=== PATIENT | female | born 1970 | race Hispanic/Latino ===

== ENCOUNTER 2021-03-30 06:29 | Emergency (ER) | payer SELFPAY ==
[2021-03-30 06:46] LABS: #Basophils 0.1 thou/uL (0.0-0.2); #Lymphocytes 0.4 thou/uL (1.20-3.40); #Monocytes 1.3 thou/uL (0.11-0.59); #Neutrophils 9.7 thou/uL (1.40-6.50); %Basophils 1.3 % (0.0-1.0); %Lymphocytes 3.7 % (21.0-51.0); %Monocytes 11.1 % (0.0-10.0); %Neutrophils 83.9 % (42.0-75.0); Hemoglobin 13.3 g/dL (12.0-16.0); Mean Corpuscular HGB CONC 31.8 g/dL (32.0-36.0); Mean Corpuscular Hemoglobin 30.8 pg (27.0-31.0); Mean Corpuscular Volume 96.6 fL (78.0-98.0); Mean Platelet Volume 6.7 fL (7.4-10.4); Platelet Count 346 thou/uL (130-400); RBC Distribution Width 11.8 % (11.5-14.5); Red Blood Cell (RBC) Count 4.31 mill/uL (4.20-5.40); White Blood Cell (WBC) Count 11.6 thou/uL (4.8-10.8)
[2021-03-30 06:59] LABS: Magnesium 2.2 mg/dL (1.6-2.6)
[2021-03-30] MEDS ORDERED: Sodium Bicarb 50 MEQ/50 ML Abboject 8.4% SYRINGE ONE ×2 (06:59→08:30)
[2021-03-30] MEDS ORDERED: INSULIN REGULAR IN 0.9 % NACL 100 UNIT/100 ML BAG ONE (07:36)
[2021-03-30 07:38] LABS: Chloride 102 mmol/L (98-107); Potassium 4.3 mmol/L (3.5-5.1); Sodium 135 mmol/L (136-145)
[2021-03-30 07:39] LABS: Carbon Dioxide Less than 8 mmol/L (22-29)
[2021-03-30 07:40] LABS: BUN (Urea Nitrogen) 43 mg/dL (9.8-20.1); Calc. Creatinine Clearance 0 mL/min (70-130); Glucose 692 mg/dL (70-105)
[2021-03-30 07:41] LABS: ALT (SGPT) 20 U/L (8-55); AST (SGOT) 13 U/L (5-34); Albumin 3.1 g/dL (3.5-5.0); Alkaline Phosphatase 89 U/L (40-110); Bilirubin, Total Less than 0.2 mg/dL (0.2-1.2); Calcium 8.4 mg/dL (7.8-10.44); Protein, Total 6.1 g/dL (6.0-8.3)
[2021-03-30 08:29] LABS: BUN (Urea Nitrogen) 40 mg/dL (9.8-20.1); Calc. Creatinine Clearance 0 mL/min (70-130); Calcium 7.5 mg/dL (7.8-10.44); Carbon Dioxide Less than 8 mmol/L (22-29); Chloride 101 mmol/L (98-107); Magnesium 1.9 mg/dL (1.6-2.6); Potassium 3.7 mmol/L (3.5-5.1); Sodium 136 mmol/L (136-145)
[2021-03-30] MEDS ORDERED: Dextrose 50% Abboject 50 ML SYRINGE ONE (08:30)
[2021-03-30 08:35] LABS: Glucose Greater than 800 mg/dL (70-105)
[2021-03-30 08:36] LABS: Base Excess-Venous -29.2 mmol/L (-2.0 to 3.0); Bicarbonate (HCO3v) 2.9 mmol/L (22.0-28.0); CO2 Tension (PvCO2) 15.6 mmHg (42.0-51.0); Calcium, Ionized 1.13 mmol/L (1.15-1.33); Chloride 109 mmol/L (98-107); Hemoglobin - Calc 12.1 g/dL (12.0-16.0); Potassium 4.2 mmol/L (3.5-5.1); Sodium 130 mmol/L (138-145); T. Carbon Dioxide Less than 5.0 mmol/L (22.0-28.0); vO2 Saturation-calc 97.6 % (60.0-85.0)
[2021-03-30 08:36] LABS: Base Excess-Venous -23.2 mmol/L (-2.0 to 3.0); Bicarbonate (HCO3v) 4.3 mmol/L (22.0-28.0); CO2 Tension (PvCO2) 13.8 mmHg (42.0-51.0); Calcium, Ionized 1.02 mmol/L (1.15-1.33); Chloride 109 mmol/L (98-107); Hemoglobin - Calc 10.5 g/dL (12.0-16.0); Potassium 3.6 mmol/L (3.5-5.1); Sodium 133 mmol/L (138-145); T. Carbon Dioxide Less than 5.0 mmol/L (22.0-28.0); vO2 Saturation-calc 98.6 % (60.0-85.0)
[2021-03-30 09:35] LABS: SARS-CoV-2 NAA Rapid Test Not Detected (NotDetected)
== END 2021-03-30 08:40 | disposition short-term general hospital (02) ==
LOC: BURERS 06:29
DX: E11.10 Type 2 diabetes mellitus with ketoacidosis without coma (principal); T68.XXXA Hypothermia, initial encounter; E87.2 Acidosis; Z20.822 Contact with and (suspected) exposure to COVID-19; I10 Essential (primary) hypertension; E78.5 Hyperlipidemia, unspecified
CPT/HCPCS: 36415; 80053; 82330; 82435; 82803; 83605; 83735; 84132; 84295; 85025; 93005; 96365; U0002

== ENCOUNTER 2025-03-30 19:16 | Emergency (ER) | payer OTHER, SELFPAY | END 2025-03-30 20:00 | disposition home or self-care (01) | LOC: BURERS 19:16 | DX: S06.0X0A Concussion without loss of consciousness, initial encounter (principal); I13.0 Hypertensive heart and chronic kidney disease with heart failure and stage 1 through stage 4 chronic kidney disease, or unspecified chronic kidney disease; E11.22 Type 2 diabetes mellitus with diabetic chronic kidney disease; N18.30 Chronic kidney disease, stage 3 unspecified; I50.9 Heart failure, unspecified; Z79.85 Long-term (current) use of injectable non-insulin antidiabetic drugs; Z79.84 Long term (current) use of oral hypoglycemic drugs; Z79.899 Other long term (current) drug therapy; V69.69XA Unspecified occupant of heavy transport vehicle injured in collision with other motor vehicles in traffic accident, initial encounter | CPT/HCPCS: 99284 ==